=== PATIENT | male | born 1990 | race Caucasian/White ===

== ENCOUNTER 2019-02-01 14:11 | Emergency (ER) | payer OTHER ==
[~2019-02-01] VITALS: Ht 170.2 cm; Wt 81.2 kg
[~2019-02-01 14:11] MED LIST: LISINOPRIL2.5 MG PO
[2019-02-01 14:39] VITALS: Ht 170.2 cm; Wt 81.2 kg
[2019-02-01 15:17] LABS: BASOPHIL % 0.2 % (0-2); PLATELET COUNT 252 x10^3mcL (130-400); RED CELL DISTRIBUTION WIDTH 12.8 % (11.5-14.5)
[2019-02-01 15:23] LABS: CALCIUM 9.2 mg/dL (8.5-10.1); CARBON DIOXIDE 26.4 mmol/L (21-32); CHLORIDE SERUM 99 mmol/L (98-107); CREATININE SERUM 1.3 mg/dL (0.7-1.3); GFR1 > 60 mL/min; GLUCOSE SERUM 121 mg/dL (74-106); POTASSIUM SERUM 3.7 mmol/L (3.5-5.1); SODIUM SERUM 139 mmol/L (136-145)
[2019-02-01 15:29] LABS: ALBUMIN 4.6 g/dL (3.4-5.0); ALKALINE PHOSPHATASE 133 U/L (46-116); ALT/SGPT 66 U/L (16-63); AST/SGOT 29 U/L (15-37); BILIRUBIN TOTAL 0.35 mg/dL (0.20-1.00)
[2019-02-01 15:30] LABS: TOTAL PROTEIN, SERUM 9.2 g/dL (6.4-8.2)
[2019-02-01 17:44] VITALS: BP 157/111
== END 2019-02-01 17:37 | disposition home or self-care (01) ==
LOC: ED 14:11
PROVIDERS: Emergency Medicine
DX: B34.9 Viral infection, unspecified (principal); J45.909 Unspecified asthma, uncomplicated; I10 Essential (primary) hypertension
CPT/HCPCS: 87804; J1885; J2405; J3490; J7030